=== PATIENT | female | born 1980 | race African-American/Black ===

== ENCOUNTER 2019-04-09 21:10 | Emergency (ER) | payer MEDICARE ==
[~2019-04-09] VITALS: Ht 175.3 cm; Wt 154.7 kg
== END 2019-04-09 21:36 | disposition home or self-care (01) ==
LOC: ER 21:10
DX: G56.02 Carpal tunnel syndrome, left upper limb (principal); F31.9 Bipolar disorder, unspecified
CPT/HCPCS: 99283